=== PATIENT | female | born 1970 | race Caucasian/White ===

== ENCOUNTER 2019-03-09 13:57 | Emergency (ER) | payer OTHER ==
[2019-03-09] MEDS ORDERED: HYDROmorphone 1 MG/ML Syringe IVPUSH ONE (15:00)
[2019-03-09] MEDS ORDERED: Metoclopramide 10 MG/2 ML SDV IVPUSH ONE (15:00)
[2019-03-09] MEDS ORDERED: Dextrose 5%-0.9% NaCl 1,000 ML IV SCH (15:00)
[2019-03-09] MEDS ORDERED: Ketorolac 30 MG/ML SDV IVPUSH SCH (15:00)
--- NOTE | 2019-03-09 15:05 | EDM.PDOC ---
ED HPI GENERAL MEDICAL PROBLEM - General Chief Complaint: General Stated Complaint: BODY PAIN Time Seen by Provider: 03/09/19 14:46 Source of Information: Reports: Patient History Limitations: Reports: No Limitations - History of Present Illness INITIAL COMMENTS - FREE TEXT/NARRATIVE: 48-year-old female presents to the ED complaining of diffuse myalgia. Her lower back. Not much for headache but they can all of her body parts particularly neck arms low back size. She states this is how she is attended when she had sepsis 4 months ago and was hospitalized with an unknown source of bacteremia. She's had pneumonia on multiple occasions. Denies cough or sputum production at this time. Has complete loss of appetite. Feels lightheaded and dizzy. She has chronic diarrhea problem since having gastric bypass years ago and also cholecystectomy. Denies nausea or vomiting. Low-grade fever at home 99.2. Denies sore throat. Denies cough or sputum production. She any dysuria urgency or frequency. States she's had cellulitis of her left lower leg in the past. Onset: Gradual Onset Date: 03/08/19 (Has had low back pain since near fall while moving a month ago. Her caught her before she at the ground but eduardo her back quite severely. She had chronic low back pain which is much worse with fever.) Duration: Day(s):, Getting Worse Location: Reports: Generalized (Generalized myalgia body aches.) Quality: Reports: Ache Severity: Moderate (Rates her pain as 8 out of 10.) Improves with: Reports: None Worsens with: Reports: None Context: Denies: Activity, Exercise, Lifting, Sick Contact, Trauma, Other Associated Symptoms: Reports: Fever/Chills, Headaches (Low-grade fever 99.2.), Loss of Appetite (Out headache), Malaise, Weakness. 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 (see below) (none.) Generalized Pain Score (Numeric/FACES): 8 - Related Data Allergies Allergy/AdvReac Type Severity Reaction Status Date / Time No Known Allergies Allergy Verified 03/09/19 14:16 Home Meds: Home Meds Doxycycline [Vibramycin] 100 mg PO BID #20 cap 03/09/19 [Rx] oxyCODONE HCl/Acetaminophen [Percocet 5-325 mg Tablet] 1 - 2 each PO Q4H PRN # 20 tablet 03/09/19 [Rx] Past Medical History Cardiovascular History: Reports: High Cholesterol, Hypertension Respiratory History: Reports: Asthma Gastrointestinal History: Reports: Chronic Diarrhea (Chronic diarrhea since cholecystectomy and gastric bypass or seizure.) Other Musculoskeletal History: rods in her back patient had her first spinal surgery at age 3. At age 10 she underwent rodding of her severe scoliosis of her thoracic spine. Neurological History: Reports: Seizure (Patient has a complex partial seizure disorder where she will just drop without any tonic-clonic activity. It's unclear whether this is connected to her neurofibromatosis.), Other (See Below) (Patient has neurofibromatosis.) Psychiatric History: Reports: Bipolar, Depression Oncologic (Cancer) History: Reports: Breast (Diagnosed with a right sided breast cancer one year ago and had radical mastectomy performed as well as left breast removed prophylactically. Was considered stage I disease and she did not receive any chemotherapy or radiation.) - Past Surgical History Head Surgeries/Procedures: Reports: None GI Surgical History: Reports: Bariatric Procedure (Bariatric surgery with gastric bypass procedure with Hoang-en-Y procedure 7 years ago.), Cholecystectomy Female Surgical History: Reports: Hysterectomy (Total abdominal hysterectomy) Musculoskeletal Surgical History: Reports: Other (See Below) (Surgeries 3 to her back. Lumbar spine surgery carried out when she was age 3. Unclear if this was her spina bifida occulta or neurofibromatosis. Patient subsequently had severe scoliosis of her thoracic spine and required rodding of the entire spine which was carried out at age 10.) Social & Family History - Tobacco Use Smoking Status *Q: Never Smoker - Living Situation & Occupation Living situation: Reports: Occupation: Unemployed ED ROS GENERAL - Review of Systems Review Of Systems: See Below Constitutional: Reports: Fever, Chills, Malaise, Weakness, Fatigue, Decreased Appetite. Denies: Night Sweats, Diaphoresis, Weight Loss HEENT: Reports: No Symptoms Respiratory: Reports: No Symptoms Cardiovascular: Reports: No Symptoms, Blood Pressure Problem, Dyspnea on Exertion (Mild around the ankles.), Edema. Denies: Chest Pain, Claudication, Lightheadedness, Orthopnea (Tends to run a bit high), Other Endocrine: Reports: Fatigue GI/Abdominal: Reports: Diarrhea (Chronic diarrhea since gastric bypass procedure and cholecystectomy.), Nausea. Denies: Hematemesis, Hematochezia, Vomiting : Reports: Frequency, Incontinence (Both urge and stress components) Musculoskeletal: Reports: Muscle Pain, Other (Diffuse myalgia is the reason for attending the ED.) Skin: Reports: Other ( Right low back pain all of her life. has extensive neurofibromatosis involving all of her skin surface. ) Neurological: Reports: Dizziness, Difficulty Walking, Weakness, Other (Patient has a seizure disorder. She's unclear whether or not this is related to neurofibromatosis.). Denies: Trouble Speaking Psychiatric: Reports: Depression Hematologic/Lymphatic: Reports: No Symptoms Immunologic: Reports: No Symptoms ED EXAM, GENERAL - Physical Exam Exam: See Below Exam Limited By: No Limitations General Appearance: Alert, WD/WN, Mild Distress, Other (Lying on her left lateral decubitus side. Feels quite unwell. Vital signs show temperature 37.2 with a pulse of 86. Respiratory is 18 with sats of 96% on room air. BP is 143/ 67.) Eye Exam: Right Eye: Nystagmus, Bilateral Eye: Normal Inspection Throat/Mouth: Normal Inspection, Normal Lips, Normal Oropharynx, Other Head: Atraumatic, Normocephalic Neck: Normal Inspection, Supple (Tongue is mildly dry and coated), Non-Tender, Full Range of Motion. No: Lymphadenopathy (L), Lymphadenopathy (R), Thyromegaly Respiratory/Chest: No Respiratory Distress, Lungs Clear, Normal Breath Sounds, No Accessory Muscle Use, Chest Non-Tender, Other (Patient has had bilateral mastectomy. She has bandages over superficial skin wounds on the right side. Apparently the right breast contained cancer the left breast was removed prophylactically. She had radical lymph node dissection in both AXILLAS.) Cardiovascular: Normal Peripheral Pulses, Regular Rate, Rhythm, No Edema, No Gallop, No JVD, No Murmur, No Rub Peripheral Pulses: 1+: Posterior Tibial (L), Posterior Tibial (R), Dorsalis Pedis (L), Dorsalis Pedis (R) GI/Abdominal: Normal Bowel Sounds, Soft, Non-Tender, No Organomegaly, No Mass, Other (Markedly obese. Abdominal girth limits ability to palpate solid organs.) Back Exam: Other (Surgical scars from her neck all the way down to the sacrum. She has severe scoliosis of his thoracic spine requiring rodding of both sides of the thoracic spine. She states for surgery to her lower back was age 3. Unclear if she had a myelomeningocele.). No: CVA Tenderness (L), CVA Tenderness (R) Extremities: Non-Tender, Pedal Edema, Other (Mild pedal edema bilaterally. Venous stasis dermatitis around the ankle and distal tib-fib on the left side) Neurological: Alert ( with evidence of previous cellulitis. There is slightly warm to palpation but no active infection is appreciated this time), Oriented, CN II-XII Intact, Normal Cognition, No Motor/Sensory Deficits Psychiatric: Flat Affect Skin Exam: Warm, Dry, Intact, Normal Color, No Rash, Other (She does feel slightly warm to palpation.) EKG INTERPRETATION EKG Date: 03/09/19 Time: 15:15 Rhythm: NSR Rate (Beats/Min): 80 [place]: Normal P-Wave: Present QRS: Other (Q waves V1 and V2 and near Q-wave in V3 suggestive of old anteroseptal myocardial infarction.) ST-T: Other (There is T-wave inversion V2 to V6 flattened T-wave in leads 123 and aVR aVL and aVF. Nonspecific finding.) QT: Prolonged (QTC is moderately prolonged at 576.) EKG Interpretation Comments: Abnormal ECG. Course - Vital Signs Last Recorded V/S: Last Vital Signs Temp 37.2 C 03/09/19 14:19 Pulse 86 03/09/19 14:19 Resp 18 03/09/19 14:19 BP 143/67 H 03/09/19 14:19 Pulse Ox 96 03/09/19 14:19 - Orders/Labs/Meds Orders: Active Orders 24 hr Category Date Time Status EKG Documentation Completion [RC] STAT Care 03/09/19 15:01 Active Chest 1V Frontal [CR] Stat Exams 03/09/19 15:01 Taken CULTURE BLOOD [BC] Stat Lab 03/09/19 15:28 Received CULTURE BLOOD [BC] Stat Lab 03/09/19 15:33 Received URINALYSIS W/MICROSCOPIC [UA W/MICROSCOPIC] [URIN] Stat Lab 03/09/19 15:04 Ordered Dextrose 5%-0.9% NaCl [Dextrose 5%-Normal Saline] 1,000 Med 03/09/19 15:00 Active ml IV ASDIRECTED Ketorolac [Toradol] Med 03/09/19 15:00 Active 30 mg IVPUSH ONETIME Blood Culture x2 Reflex Set [OM.PC] Stat Oth 03/09/19 15:02 Ordered Medication Orders Dextrose/Sodium Chloride (Dextrose 5%-Normal Saline) 1,000 mls @ 500 mls/hr IV ASDIRECTED AMARIS Last Admin: 03/09/19 15:18 Dose: 500 mls/hr Ketorolac Tromethamine (Toradol) 30 mg IVPUSH ONETIME AMARIS Last Admin: 03/09/19 15:18 Dose: 30 mg Labs: Laboratory Tests 03/09/19 03/09/19 03/09/19 Range/Units 15:33 15:33 15:33 WBC 7.46 (3.98-10.04) K/mm3 RBC 3.96 L (3.98-5.22) M/mm3 Hgb 10.9 L (11.2-15.7) gm/L Hct 34.3 (34.1-44.9) % MCV 86.6 (79.4-94.8) fl MCH 27.5 (25.6-32.2) pg MCHC 31.8 L (32.2-35.5) g/dl RDW Std Deviation 53.5 H (36.4-46.3) fL Plt Count 266 (182-369) K/mm3 MPV 9.7 (9.4-12.3) fl Neutrophils % (Manual) 78 H (40-60) % Band Neutrophils % 0 (0-10) % Lymphocytes % (Manual) 15 L (20-40) % Atypical Lymphs % 0 % Monocytes % (Manual) 5 (2-10) % Eosinophils % (Manual) 0 L (0.7-5.8) % Basophils % (Manual) 2 H (0.1-1.2) Platelet Estimate Adequate Hypochromasia 1+ slight Anisocytosis 2+ moderate RBC Morph Comment Abnormal ESR (0-20) mm/hr Sodium 140 (136-145) mEq/L Potassium 4.0 (3.5-5.1) mEq/L Chloride 104 (98-107) mEq/L Carbon Dioxide 28 (21-32) mEq/L Anion Gap 12.0 (5-15) BUN 14 (7-18) mg/dL Creatinine 0.8 (0.55-1.02) mg/dL Est Cr Clr Drug Dosing 78.76 mL/min Estimated GFR (MDRD) > 60 (>60) mL/min BUN/Creatinine Ratio 17.5 (14-18) Glucose 85 (74-106) mg/dL Lactic Acid 1.0 (0.4-2.0) mmol/L Calcium 8.9 (8.5-10.1) mg/dL Total Bilirubin 0.3 (0.2-1.0) mg/dL AST 12 L (15-37) U/L ALT 15 (14-59) U/L Alkaline Phosphatase 91 (46-116) U/L Creatine Kinase 27 (26-192) U/L C-Reactive Protein 5.7 H* (<1.0) mg/dL Total Protein 7.6 (6.4-8.2) g/dl Albumin 3.4 (3.4-5.0) g/dl Globulin 4.2 gm/dL Albumin/Globulin Ratio 0.8 L (1-2) TSH 3rd Generation 2.228 (0.358-3.74) uIU/mL 03/09/19 Range/Units 15:33 WBC (3.98-10.04) K/mm3 RBC (3.98-5.22) M/mm3 Hgb (11.2-15.7) gm/L Hct (34.1-44.9) % MCV (79.4-94.8) fl MCH (25.6-32.2) pg MCHC (32.2-35.5) g/dl RDW Std Deviation (36.4-46.3) fL Plt Count (182-369) K/mm3 MPV (9.4-12.3) fl Neutrophils % (Manual) (40-60) % Band Neutrophils % (0-10) % Lymphocytes % (Manual) (20-40) % Atypical Lymphs % % Monocytes % (Manual) (2-10) % Eosinophils % (Manual) (0.7-5.8) % Basophils % (Manual) (0.1-1.2) Platelet Estimate Hypochromasia Anisocytosis RBC Morph Comment ESR 50 H (0-20) mm/hr Sodium (136-145) mEq/L Potassium (3.5-5.1) mEq/L Chloride (98-107) mEq/L Carbon Dioxide (21-32) mEq/L Anion Gap (5-15) BUN (7-18) mg/dL Creatinine (0.55-1.02) mg/dL Est Cr Clr Drug Dosing mL/min Estimated GFR (MDRD) (>60) mL/min BUN/Creatinine Ratio (14-18) Glucose (74-106) mg/dL Lactic Acid (0.4-2.0) mmol/L Calcium (8.5-10.1) mg/dL Total Bilirubin (0.2-1.0) mg/dL AST (15-37) U/L ALT (14-59) U/L Alkaline Phosphatase (46-116) U/L Creatine Kinase (26-192) U/L C-Reactive Protein (<1.0) mg/dL Total Protein (6.4-8.2) g/dl Albumin (3.4-5.0) g/dl Globulin gm/dL Albumin/Globulin Ratio (1-2) TSH 3rd Generation (0.358-3.74) uIU/mL Meds: Medications Generic Name Dose Route Start Last Admin Trade Name Freq PRN Reason Stop Dose Admin Dextrose/Sodium Chloride 1,000 mls @ 500 mls/hr 03/09/19 15:00 03/09/19 15:18 Dextrose 5%-Normal Saline IV 500 mls/hr ASDIRECTED AMARIS Administration Ketorolac Tromethamine 30 mg 03/09/19 15:00 03/09/19 15:18 Toradol IVPUSH 30 mg ONETIME AMARIS Administration Discontinued Medications Generic Name Dose Route Start Last Admin Trade Name Freq PRN Reason Stop Dose Admin Hydromorphone HCl 1 mg 03/09/19 15:00 03/09/19 15:19 Dilaudid IVPUSH 03/09/19 15:01 1 mg ONETIME ONE Administration Linezolid 600 mg/ Premix 300 mls @ 300 mls/hr 03/09/19 17:36 03/09/19 18:13 IV 03/09/19 18:35 300 mls/hr ONETIME ONE Administration Metoclopramide HCl 7.5 mg 03/09/19 15:00 03/09/19 15:18 Reglan IVPUSH 03/09/19 15:01 7.5 mg ONETIME ONE Administration - Radiology Interpretation Free Text/Narrative:: 48-year-old female presents to the ED with generalized myalgia that his become worse over the last 2-1/2-3 days. She particularly hurts in her lower back were she's had surgery before. She has loss of appetite. Temperature at home was low- grade at 99.2. She states she feels like she did when she was diagnosed with sepsis 4 months ago and ended up in the intensive care unit for 3 days. She was hospitalized for 3 days of IV antibiotics and then discharged on oral antibiotics at that time. It's unclear whether the source of infection was to her knowledge. Nothing specific is identified on examination. Reports her pain is 8 out of 10. She looks tired. Plan IV D5 normal saline at 500 mils per hour. Septic workup will be obtained including lactic acid and blood cultures 2. Urinalysis and x-ray of the chest to be done. We'll also CT her thoracic lumbar spine since she had a near fall with injury to her back a month ago and is just not getting better. Given Dilaudid 1 mg IV with Reglan 7.5 mg IV and Toradol 30 mg IV for pain relief. - Re-Assessments/Exams Free Text/Narrative Re-Assessment/Exam: 03/09/19 17:27 Labs reveal a normal white count at 7.46. Differential is 70% neutrophils with no band cells. Hemoglobin is 10.9 with hematocrit of 34.3. Platelet count is 266,000. The slides slow shows 1+ hypochromasia and 2+ anisocytosis. 140 with potassium of 4.0. Chloride 104 the bicarbonate 28. And a gap is 12.0. BUNs 14 with a creatinine of 0.8. GFR is greater than 60. Glucose is 85 lactic acid is 1.0. Calcium is 8.9 liver function is normal. Total CPK is 27. C-reactive protein is elevated at 5.7. Total protein is 7.6 with an albumin fraction of 3.4. Globulin is 4.2. TSH is 2.28. Chest x-ray has been completed. Reveal severe scoliosis of the thoracic spine concave to the right side. This changes the anatomy of her heart making the right ventricle more prominent than normal. As I believe is normal. The visualized portion of lungs are clear with no sign of pneumonia. CT lumbar spine shows artifact noted from spinal fixation rods which started approximately T4 and ended L3. You're scoliosis is noted. Severe disc space narrowing is noted at L5-S1 with vacuum phenomena. Severe disc space narrowing noted at T12-L1, L1-2 and L2-3 levels. Mild posterior disc space narrowing is noted at L3-4 level. Moderate circumferential disc bulge is seen at L4-5 with severe degenerative apophyseal change. Findings cause moderate to severe central canal stenosis. No other levels of central canal stenosis are appreciated. No discrete neural foraminal stenosis appreciated. Diffuse degenerative apophyseal change noted. No acute fracture or abnormal subluxation is seen. Vacuum phenomena is noted within the SI joints. CT thoracic s there is bony destruction with lytic lesions being seen within T6 , T7 and T8 with surrounding soft tissue mass. There is soft tissue extension appearing to be present into the central canal but thoracic cord is not well seen and difficult to make any comments about cord compression. Uncertain if findings are due to infection or neoplastic. There is a small lytic lesion seen within T5 this shows no involvement of the vertebral margins and may represent a very early lesion. No other lytic lesions or areas of bony destruction are identified. Severe scoliosis is noted with spinal fixation rods beginning approximately AT T4 and ending within the lumbar spine at L3 level. There is fusion being seen within the posterior elements at the levels of the spinal fixation rods. Other than the areas of lytic change no other findings of central canal stenosis are appreciated. No discrete neural foraminal stenosis is noted. 03/09/19 17:33 DIscussed the above findings with the patient. I have ordered a sedimentation rate on this lady. Doesn't she states her pain is markedly improved after the Dilaudid IV. She is not amenable to MRI due to rods in her back. She is going to need some form of biopsy carried out at the level of lytic lesions in her back. Suggest cancer of the right breast a year ago with bilateral mastectomies performed it is possible this is cancerous in origin. However she was admitted with sepsis of unclear origin 4 months ago in [facility] and I cannot rule out osteomyelitis. Due to elevated CRP I'm going to place her on Zyvox 600 mg IV at this time. 03/09/19 19:25 patient has received 600 mg of Zosyn IV. Her sedimentation rate came back at 50. Therefore I'm unable to differentiate osteomyelitis from tumor. She doesn't wish to travel to [facility] for admission to hospital. She recently relocated to the [facility]. She has an appointment set up with a new doctor at [facility] on Saturday this week. I'm therefore going to place her on doxepin 100 mg twice daily to cover for MRSA infection until diagnosis can be clarified. It's unclear what the changes in her thoracic spine are due to tumor invasion versus osteomyelitis. She will also receive a prescription for Percocet 5/325 mg one or 2 every 4-6 hours for pain relief 20 tablets. She is going to require admission to a larger center for perhaps interventional radiology for cardiovascular surgery to biopsy thoracic bone and suspect soft tissue mass around this area. 03/09/19 19:[address] forward her CT scans of her thoracic spine, lumbar spine and chest x-ray done today to [place] in [place]. She doesn't know the name of the physician that she will be seeing at [facility] on Saturday this week. Departure - Departure Time of Disposition: 19:27 Disposition: Home, Self-Care 01 Condition: Fair Clinical Impression: Encounter for pain management, Lytic lesion of bone on x-ray - Discharge Information *PRESCRIPTION DRUG MONITORING PROGRAM REVIEWED*: Not Applicable *COPY OF PRESCRIPTION DRUG MONITORING REPORT IN PATIENT PAUL: Not Applicable Prescriptions: Doxycycline [Vibramycin] 100 mg PO BID #20 cap oxyCODONE HCl/Acetaminophen [Percocet 5-325 mg Tablet] 1 - 2 each PO Q4H PRN # 20 tablet PRN Reason: pain relief. Referrals: PCP,None [Primary Care Provider] - Forms: ED Department Discharge Additional Instructions: Evaluation the emergency room today in regards to generally not feeling well with significant generalized pain syndrome. Concern that voiced as this is a same way you started to feel when he became septic 4 months ago and were hospitalized in [facility] in [place]. Investigations by way of chest x-ray today did not reveal any abnormalities. CT of your thoracic spine reveals evidence of marked concern with lytic lesions within thoracic 6, thoracic 7, thoracic 8 vertebra. His most of the bone is missing in the way by either infection or tumor. There also appears to be a soft tissue mass adjacent to the bones of unclear source. This areas going to require further investigation by way of PET scan and likely biopsy of the area to confirm whether or not this is cancerous or in fact infectious course the treatment is completely different. This time you're treated with first dose of antibiotic intravenously in the emergency department with concerns of low-grade fever and generalized aching which shoots pain is when you developed sepsis 4 months ago and ended up in the hospital. Will treat with oral doxycycline 100 mg twice daily for the next 10 days until you can get into a larger center for further investigation and treatment of a reason for the lytic lesions in the bones of your back. Pain medication is to be Percocet tabs 5/3/25 milligrams one or 2 every 4-6 hours needed for pain relief. If you need many of them they will cause constipation I would suggest picking up some MiraLAX powder 17 g or 1 scoop daily to prevent constipation from pain meds. I'll up with your personal care physician as planned on Saturday this week and they can obtain all the records from the hospital in regards to the findings of your CT so that they can help further direct YOUR care - My Orders Last 24 Hours: My Active Orders 03/09/19 15:00 Dextrose 5%-0.9% NaCl [Dextrose 5%-Normal Saline] 1,000 ml IV ASDIRECTED Ketorolac [Toradol] 30 mg IVPUSH ONETIME 03/09/19 15:01 EKG Documentation Completion [RC] STAT Chest 1V Frontal [CR] Stat 03/09/19 15:02 Blood Culture x2 Reflex Set [OM.PC] Stat 03/09/19 15:04 URINALYSIS W/MICROSCOPIC [UA W/MICROSCOPIC] [URIN] Stat 03/09/19 15:28 CULTURE BLOOD [BC] Stat 03/09/19 15:33 CULTURE BLOOD [BC] Stat - Assessment/Plan Last 24 Hours: My Active Orders 03/09/19 15:00 Dextrose 5%-0.9% NaCl [Dextrose 5%-Normal Saline] 1,000 ml IV ASDIRECTED Ketorolac [Toradol] 30 mg IVPUSH ONETIME 03/09/19 15:01 EKG Documentation Completion [RC] STAT Chest 1V Frontal [CR] Stat 03/09/19 15:02 Blood Culture x2 Reflex Set [OM.PC] Stat 03/09/19 15:04 URINALYSIS W/MICROSCOPIC [UA W/MICROSCOPIC] [URIN] Stat 03/09/19 15:28 CULTURE BLOOD [BC] Stat 03/09/19 15:33 CULTURE BLOOD [] Stat
--- NOTE | 2019-03-09 16:28 | CT ---
CT thoracic spine Technique: Multiple axial sections through the thoracic spine were obtained. Reconstructed coronal and sagittal images were obtained. Comparison: No prior thoracic spine imaging. Findings: There is bony destruction with lytic lesions being seen within within T6, T7 and T8 with surrounding soft tissue mass. There is soft tissue extension appearing to be present into the central canal but thoracic cord is not well seen and difficult to make any comments about cord compression. Uncertain if findings are due to infection or are neoplastic. Small lytic lesion is seen within T5. This shows no involvement of the vertebral margins and may represent a very early lesion. No other lytic lesions or areas of bony destruction are seen. Severe scoliosis is noted with spinal fixation rods beginning at approximately T4 and ending within the lumbar spine. There is fusion being seen within the posterior elements at the levels of the spinal fixation rods. Other than the areas of lytic change, no other findings of central canal stenosis is seen. No discrete neural foraminal stenosis is appreciated. Impression: 1. Lytic lesions with surrounding soft tissue mass involving the T6, T7 and T8 vertebral bodies. Small lesion is noted within the T5 vertebral body. Differential includes neoplasm versus infection. 2. Difficult to evaluate the degree of cord compression at T6-T8 as the cord is not well seen. 3. Severe scoliosis, degenerative change as well as areas of posterior fusion at the levels showing these final fixation rods. 4. No other acute finding is appreciated. Diagnostic code #9
--- NOTE | 2019-03-09 16:29 | CT ---
CT lumbar spine Technique: Multiple axial sections through the lumbar spine were obtained. Reconstructed coronal and sagittal images were obtained. Findings: Artifact is noted from spinal fixation rods which start at approximately T4 and and and at L3. Severe scoliosis is noted. Severe disc space narrowing is noted at L5-S1 with vacuum phenomena. Severe disc space narrowing noted at T12-L1, L1-2 and L2-3. Mild posterior disc space narrowing is noted at L3-4. Moderate circumferential disc bulge seen at L4-5 with severe degenerative apophyseal change. Findings cause moderate to severe central canal stenosis. No other levels of central canal stenosis are seen. No discrete neural foraminal stenosis is appreciated. Diffuse degenerative apophyseal change is noted. No acute fracture or abnormal subluxation is seen. Vacuum phenomenon is noted within the sacroiliac joints. Impression: 1. Scoliosis and degenerative change. No definite acute fracture or abnormal subluxation is seen. Diagnostic code #3
[2019-03-09] MEDS ORDERED: Linezolid 600 MG in Premix Bag 1 BAG IV ONE (17:36)
--- NOTE | 2019-03-10 06:54 | CR ---
Chest: Portable view of the chest was obtained. Comparison: No previous chest x-ray. Heart is enlarged. Tortuous thoracic aorta is seen. Lungs are clear with no acute parenchymal change. Surgical clips are seen within the left chest wall and axillary region. Impression: 1. Cardiomegaly. Other findings believed to be incidental. Nothing acute is appreciated. Diagnostic code #2
== END 2019-03-09 20:00 | disposition home or self-care (01) ==
LOC: JD.ED 13:57
DX: M79.18 Myalgia, other site (principal); M54.2 Cervicalgia; M54.5 Low back pain; M89.9 Disorder of bone, unspecified; E78.00 Pure hypercholesterolemia, unspecified; I10 Essential (primary) hypertension
CPT/HCPCS: 36415; 71045; 72128; 72131; 80053; 82550; 83605; 84443; 85007; 85027; 85652; 86140; 87040; 93005; 96361; 96365; 96375; 99284; J1170; J1885; J2020; J2765; J7042